=== PATIENT | female | born 1930 | race Hispanic/Latino ===

== ENCOUNTER 2016-11-10 16:46 | Emergency (ER) | payer MEDICARE, MEDICAID ==
[2016-11-10 16:47] VITALS: BMI 30.9
[2016-11-10 16:51] VITALS: RESP 18
--- NOTE | 2016-11-10 17:48 | C.PDOC ---
History Of Present Illness 86 y/o female presents to the ED for evaluation of constipation which began around 17 days ago. Patient also reports abdominal bloating. She states she is currently taking stool softeners on a daily basis and took one laxative yesterday without relief. She denies fever, chills, abdominal pain, nausea, vomiting. Time Seen by Provider: 11/10/16 17:11 Chief Complaint (Nursing): GI Problem History Per: Patient History/Exam Limitations: no limitations Onset/Duration Of Symptoms: Days (17) Current Symptoms Are (Timing): Still Present Location Of Pain/Discomfort: Diffuse Quality Of Discomfort: Other (+bloating ) Associated Symptoms: Constipation. denies: Fever, Chills, Nausea, Vomiting Additional History Per: Patient Past Medical History Reviewed: Historical Data, Nursing Documentation, Vital Signs Vital Signs: Last Vital Signs Temp 97.5 F L 11/10/16 16:50 Pulse 53 L 11/10/16 16:50 Resp 18 11/10/16 16:50 BP 148/67 11/10/16 16:50 Pulse Ox 95 11/10/16 18:04 - Medical History PMH: Arthritis, COPD, HTN, Hypercholesterolemia, Osteoporosis, Pulmonary Embolism Surgical History: No Surg Hx - [facility] Procedures APPLICATION OF SPLINT (04/22/14) ENDOSC POLYPECTOMY OF LG INTEST (08/14/12) ESOPHAGOGASTRODUODENOSCOPY [EGD] W/CLOSED BIOPSY (08/14/12) PACKED CELL TRANSFUSION (08/14/12) VACCINATION NEC (08/14/12) Family History: States: Unknown Family Hx - Social History Hx Tobacco Use: No Hx Alcohol Use: No Hx Substance Use: No - Immunization History Hx Tetanus Toxoid Vaccination: No Hx Influenza Vaccination: Yes (01/2016) Hx Pneumococcal Vaccination: Yes (2012) Review Of Systems Constitutional: Negative for: Fever, Chills Gastrointestinal: Positive for: Abdominal Pain (+bloating ), Constipation. Negative for: Nausea, Vomiting Physical Exam - Physical Exam Appears: Non-toxic, No Acute Distress Skin: Normal Color, Warm, Dry Head: Atraumatic Eye(s): bilateral: Normal Inspection Oral Mucosa: Moist Neck: Supple Chest: Symmetrical Cardiovascular: Rhythm Regular Gastrointestinal/Abdominal: Soft, No Tenderness, No Guarding, No Rebound Rectal: No Hemorrhoids, Other (+stool impaction, no bleeding ) Extremity: Normal ROM, Capillary Refill (less than 2 seconds ) Neurological/Psych: Normal Speech, Normal Cognition Gait: Steady ED Course And Treatment O2 Sat by Pulse Oximetry: 95 (on RA) Pulse Ox Interpretation: Normal Progress - Re-Evaluation Re-evaluation Note: 11/10/16 18:04 SP ENEMA. +BM. REPEAT RECTAL SCANT STOOL IMPACT, MUCH IMPROVED COMPARED TO PRIOR. WILL REPEAT ENEMA, OBSERVE FOR ADDL BM 11/10/16 18:51 NO ADDL BM. IMPROVED. DC MAG CITRATE, FU PMD - Data Reviewed Data Reviewed: Old records Disposition Counseled Patient/Family Regarding: Diagnosis, Need For Followup, Rx Given - Disposition Referrals: YOUR,PMD [Other] Disposition: HOME/ ROUTINE Disposition Time: 18:51 Condition: IMPROVED Prescriptions: Magnesium Citrate [[facility] Magnesium Citrate] 300 ml PO ONCE #1 bottle Instructions: Constipation (ED) Forms: [facility] (Irish) - Clinical Impression Clinical Impression: Constipation - Scribe Statement The provider has reviewed the documentation as recorded by the Scribe (Christina Randall) Provider Attestation: All medical record entries made by the Scribe were at my direction and personally dictated by me. I have reviewed the chart and agree that the record accurately reflects my personal performance of the history, physical exam, medical decision making, and the department course for this patient. I have also personally directed, reviewed, and agree with the discharge instructions and disposition.
[2016-11-10 19:01] VITALS: BP 148/70; PULSE 64; TEMP 97.6; O2SAT 97
== END 2016-11-10 19:01 | disposition home or self-care (01) ==
LOC: C.ER 16:46
DX: K59.00 Constipation, unspecified (principal)

== ENCOUNTER 2018-06-01 13:28 | Outpatient (CLI) | payer MEDICARE, MEDICAID | END 2018-06-01 13:29 | disposition home or self-care (01) | LOC: C.CTH 13:28 | DX: H91.90 Unspecified hearing loss, unspecified ear (principal) ==

== ENCOUNTER 2018-06-12 14:48 | Observation (INO) | payer MEDICARE, MEDICAID | END 2018-06-15 21:31 | disposition home or self-care (01) | LOC: C.ER 14:48 → C.9E 18:26 → C.6T 19:33 ==